=== PATIENT | female | born 1955 | race Asian ===

== ENCOUNTER 2022-10-04 21:10 | Emergency (ER) | payer OTHER, MEDICAID ==
[~2022-10-04] VITALS: Ht 157.5 cm; Wt 66.7 kg
[2022-10-04 21:31] VITALS: BP_SYST 169
[2022-10-05 00:36] LABS: BASOPHILS % (AUTO) 0.7 % (0.0-2.0); EOSINOPHILS # (AUTO) 0.1 K/uL (0.0-0.4); HEMATOCRIT 41.3 % (36-48); HEMOGLOBIN 13.8 g/dL (12.0-16.0); LYMPHOCYTES # (AUTO) 1.8 K/uL (1.0-5.5); LYMPHOCYTES % (AUTO) 26.1 % (20.5-51.5); MEAN CORPUSCULAR HEMOGLOBIN 29 pg (27-31); MEAN CORPUSCULAR HGB CONC 33 % (32-36); MEAN CORPUSCULAR VOLUME 86 fL (79.0-98.0); MONOCYTES # (AUTO) 0.5 K/uL (0.0-1.0); MONOCYTES % (AUTO) 6.6 % (1.7-9.3); NEUTROPHILS # (AUTO) 4.6 K/uL (1.8-7.7); NEUTROPHILS % (AUTO) 65.6 % (40.0-70.0); PLATELET COUNT (AUTO) 208 K/uL (130-430); RED BLOOD CELL COUNT(AUTO) 4.81 MIL/uL (4.2-6.2); RED CELL DISTRIBUTION WIDTH 13.3 % (9.0-15.0)
[2022-10-05 00:41] LABS: ANION GAP 7 (5-15); CALCIUM 8.9 mg/dL (8.4-11.0); CHLORIDE 105 mmol/L (98-107); CREATININE 1.18 mg/dL (0.55-1.30); GFR AFRICAN AMERICAN 58 mL/min (>90); GLUCOSE 106 mg/dL (70-99); UREA NITROGEN, BLOOD 14 mg/dL (8-21)
[2022-10-05 00:49] LABS: ALANINE AMINOTRANSFERASE 29 U/L (12-78); ALBUMIN 3.9 g/dL (3.4-4.8); ASPARTATE AMINOTRANSFERASE 20 U/L (10-37); TOTAL BILIRUBIN 0.4 mg/dL (0.0-1.0)
[2022-10-05 01:44] VITALS: BP_SYST 130
[2022-10-05] MEDS ORDERED: BACITRACIN 1 GM OINT TP ONE (01:45)
== END 2022-10-05 01:44 | disposition home or self-care (01) ==
LOC: SED 21:10
DX: S01.311A Laceration without foreign body of right ear, initial encounter (principal); S09.90XA Unspecified injury of head, initial encounter; R55 Syncope and collapse; I10 Essential (primary) hypertension; Z79.899 Other long term (current) drug therapy; W06.XXXA Fall from bed, initial encounter; Y93.89 Activity, other specified; Y92.89 Other specified places as the place of occurrence of the external cause; Y99.8 Other external cause status
CPT/HCPCS: 36415; 70450-TC; 76376; 80053; 84484; 85025; 93005; 99285

== ENCOUNTER 2022-10-12 16:03 | Emergency (ER) | payer OTHER, MEDICAID ==
[~2022-10-12] VITALS: Ht 157.5 cm; Wt 66.7 kg
--- NOTE | 2022-10-12 16:06 | NUR ---
Patient to ER bed 06 to gown for evaluation. Side rails up.
--- NOTE | 2022-10-12 16:08 | NUR ---
Pt brought by self, A&Ox4, pt presents to ER for sutures removal from R ear , sutures placed 7 days ago, will cont to monitor
--- NOTE | 2022-10-12 16:10 | NUR ---
Per Dr Cory BALL still healing, sutures need to be removed in 2 days
[2022-10-12 16:16] VITALS: BP_SYST 162
--- NOTE | 2022-10-12 16:32 | NUR ---
Patient given written and verbal discharge instructions and verbalizes understanding. ER MD discussed with patient the results and treatment provided. Patient in stable condition. ID arm band removed. No Rx given. Patient educated on pain management and to follow up with PMD. Pain Scale 0/10. Opportunity for questions provided and answered. Medication side effect fact sheet provided.
[2022-10-12 16:33] VITALS: BP_SYST 162
== END 2022-10-12 16:32 | disposition home or self-care (01) ==
LOC: SED 16:03
DX: S01.311A Laceration without foreign body of right ear, initial encounter (principal); I10 Essential (primary) hypertension; Z79.899 Other long term (current) drug therapy; X58.XXXA Exposure to other specified factors, initial encounter; Y93.89 Activity, other specified; Y92.89 Other specified places as the place of occurrence of the external cause; Y99.8 Other external cause status
CPT/HCPCS: 99281

== ENCOUNTER 2022-10-14 16:45 | Emergency (ER) | payer OTHER, MEDICAID ==
[~2022-10-14] VITALS: Ht 157.5 cm; Wt 66.7 kg
[2022-10-14 17:08] VITALS: BP_SYST 144
[2022-10-14 17:27] VITALS: BP_SYST 144
== END 2022-10-14 17:29 | disposition home or self-care (01) ==
LOC: SED 16:45
DX: Z48.02 Encounter for removal of sutures (principal); I10 Essential (primary) hypertension; Z79.899 Other long term (current) drug therapy
CPT/HCPCS: 99281

== ENCOUNTER 2023-10-04 20:00 | Emergency (ER) | payer OTHER, MEDICAID ==
[~2023-10-04] VITALS: Ht 157.5 cm; Wt 63.5 kg
[2023-10-04 20:11] VITALS: BP_SYST 168; PULSE 89; RESP 18; TEMP 98.2; O2SAT 99
[2023-10-04 22:49] VITALS: BP_SYST 152; PULSE 72; RESP 16; TEMP 98.2; O2SAT 99
== END 2023-10-04 22:49 | disposition home or self-care (01) ==
LOC: SED 20:00
DX: Z04.1 Encounter for examination and observation following transport accident (principal); R07.89 Other chest pain; R10.11 Right upper quadrant pain; I10 Essential (primary) hypertension; Z79.899 Other long term (current) drug therapy
CPT/HCPCS: 71250-TC; 99284